=== PATIENT | female | born 1985 | race Caucasian/White ===

== ENCOUNTER 2019-11-07 11:37 | Emergency (ER) | payer BC ==
--- NOTE | 2019-11-07 11:41 | EDM.PDOC ---
ED HPI GENERAL MEDICAL PROBLEM - General Chief Complaint: Lower Extremity Injury/Pain Stated Complaint: POSSIBLE BROKEN R FOOT Time Seen by Provider: 11/07/19 11:39 Source of Information: Reports: Patient History Limitations: Reports: No Limitations - History of Present Illness INITIAL COMMENTS - FREE TEXT/NARRATIVE: HISTORY AND PHYSICAL: History of present illness: Patient is a 33-year-old female who presents to the emergency room with complaints of right lateral foot pain and swelling. She states last evening she rolled her foot and had immediate pain and discomfort. She denies any other extremity and involvement. Offers no systemic complaints. Review of systems: As per history of present illness and below otherwise all systems reviewed and negative. Past medical history: As per history of present illness and as reviewed below otherwise noncontributory. Surgical history: As per history of present illness and as reviewed below otherwise noncontributory. Social history: See social history for further information Family history: As per history of present illness and as reviewed below otherwise noncontributory. Physical exam: General: Well-developed and well-nourished 33-year-old female. Alert and oriented. Nontoxic-appearing and in no acute distress. HEENT: Atraumatic, normocephalic, pupils equal and reactive bilaterally, negative for conjunctival pallor or scleral icterus, mucous membranes moist, TMs normal bilaterally, throat clear, neck supple, nontender, trachea midline. No drooling or trismus noted. No meningeal signs. No hot potato voice noted. Lungs: Clear to auscultation, breath sounds equal bilaterally, chest nontender. Heart: S1S2, regular rate and rhythm without overt murmur Abdomen: Soft, nondistended, nontender. Skin: Soft tissue swelling and bruising to the lateral mid right foot. Otherwise skin is intact, warm, dry. No lesions or rashes noted. Extremities: Pain with palpation of the lateral right midfoot, SEE SKIN for details. No malleolus tenderness with palpation. Moves all extremities per self without difficulty or deficits, strong radial pulse, cap refill less than 3 seconds, +CMS, negative for cords or calf pain. Neurovascular unremarkable. Neuro: Awake, alert, oriented. Cranial nerves II through XII unremarkable. Cerebellum unremarkable. Motor and sensory unremarkable throughout. Exam nonfocal. Notes: X-ray shows a slightly displaced distal shaft fracture within the fifth metatarsal. Soft tissue swelling noted. This information was shared with the patient. A posterior fiberglass splint was placed and crutches education given. Patient will need the splint and crutches until cleared by podiatry. Supportive care measures were reviewed and discussed. Voices understanding and is agreeable to plan of care. Denies any further questions or concerns at this time. Diagnostics: Right foot x-ray Therapeutics: Fiberglass splint, Crutches, [place] Prescription: [place] (#20) Impression: Metatarsal fracture, right foot Plan: 1. Rest, ice, elevate the affected extremity. Please wear the fiberglass splint and use the crutches until cleared by podiatry. NONWIEGHTBEARING. 2. Tylenol and/or Ibuprofen as needed for pain management. [place] as directed, this medication may cause drowsiness so do not take it while driving or needing to be functioning outside of the house. 3. Follow up with the Orthopedic provider or podiatry as we discussed. Return to the ED as needed and as discussed. Definitive disposition and diagnosis as appropriate pending reevaluation and review of above. right foot Pain Score (Numeric/FACES): 8 - Related Data Allergies Allergy/AdvReac Type Severity Reaction Status Date / Time No Known Allergies Allergy Verified 11/07/19 11:46 Home Meds: Home Meds Acetaminophen/HYDROcodone [[place] 325-5 MG] 1 dose PO Q4H #20 tablet 11/07/19 [Rx ] Melatonin 2 tab PO DAILY 11/07/19 [History] Review of Systems - Review of Systems Review Of Systems: Comprehensive ROS is negative, except as noted in HPI. ED EXAM, GENERAL - Physical Exam Exam: See Below (See dictation) Course - Vital Signs Last Recorded V/S: Last Vital Signs Temp 96.7 F L 11/07/19 11:43 Pulse 87 11/07/19 11:43 Resp 16 11/07/19 11:43 BP 129/77 11/07/19 11:43 Pulse Ox 95 11/07/19 11:43 - Orders/Labs/Meds Orders: Active Orders 24 hr Category Date Time Status DME for Discharge [COMM] Stat Oth 11/07/19 12:20 Ordered Meds: Medications Discontinued Medications Generic Name Dose Route Start Last Admin Trade Name Freq PRN Reason Stop Dose Admin Hydrocodone Bitart/Acetaminophen 1 tab 11/07/19 12:19 [place] 325-5 Mg PO 11/07/19 12:20 ONETIME ONE Departure - Departure Time of Disposition: 12:22 Disposition: Home, Self-Care 01 Clinical Impression: Metatarsal bone fracture Qualifiers: Encounter type: initial encounter Metatarsal bone: fifth Fracture type: closed Fracture alignment: displaced Laterality: right Qualified Code(s): S92.351A - Displaced fracture of fifth metatarsal bone, right foot, initial encounter for closed fracture - Discharge Information Prescriptions: Acetaminophen/HYDROcodone [[place] 325-5 MG] 1 dose PO Q4H #20 tablet Instructions: Metatarsal Fracture Referrals: Delio Butler MD [Primary Care Provider] - Forms: ED Department Discharge Additional Instructions: The following information is given to patients seen in the emergency department who are being discharged to home. This information is to outline your options for follow-up care. We provide all patients seen in our emergency department with a follow-up referral. The need for follow-up, as well as the timing and circumstances, are variable depending upon the specifics of your emergency department visit. If you don't have a primary care physician on staff, we will provide you with a referral. We always advise you to contact your personal physician following an emergency department visit to inform them of the circumstance of the visit and for follow-up with them and/or the need for any referrals to a consulting specialist. The emergency department will also refer you to a specialist when appropriate. This referral assures that you have the opportunity for follow-up care with a specialist. All of these measure are taken in an effort to provide you with optimal care, which includes your follow-up. Under all circumstances we always encourage you to contact your private physician who remains a resource for coordinating your care. When calling for follow-up care, please make the office aware that this follow-up is from your recent emergency room visit. If for any reason you are refused follow-up, please contact the [facility] Emergency Department at and asked to speak to the emergency department charge nurse. [facility] [address] [place] [phone] Medina (Podiatry) [facility] [address] [place] [address] 1. Rest, ice, elevate the affected extremity. Please wear the fiberglass splint and use the crutches until cleared by podiatry. NONWIEGHTBEARING. 2. Tylenol and/or Ibuprofen as needed for pain management. [place] as directed, this medication may cause drowsiness so do not take it while driving or needing to be functioning outside of the house. 3. Follow up with the Orthopedic provider or podiatry as we discussed. Return to the ED as needed and as discussed. Sepsis Event Note - Focused Exam Vital Signs: Vital Signs Temp Pulse Resp BP Pulse Ox 11/07/19 11:43 96.7 F L 87 16 129/77 95 Date Exam was Performed: 11/07/19 Time Exam was Performed: 12:25 - My Orders Last 24 Hours: My Active Orders 11/07/19 12:20 DME for Discharge [COMM] Stat - Assessment/Plan Last 24 Hours: My Active Orders 11/07/19 12:20 DME for Discharge [COMM] Stat
--- NOTE | 2019-11-07 12:14 | CR ---
Right foot: 2 views of the right foot were obtained. Comparison: No previous study. Slightly displaced distal shaft fracture is noted within the 5th metatarsal. Unfused os navicularis is noted which is felt to be a normal variant. No additional fracture or other bony abnormality is seen. Soft tissue swelling is noted. Impression: 1. Slightly displaced distal shaft fracture within the 5th metatarsal. 2. Soft tissue swelling. 3. No other acute finding is seen on 2 view right foot exam. Diagnostic code #3 This report was dictated in [place] Standard Time
[2019-11-07] MEDS ORDERED: Acetaminophen/HYDROcodone 325-5 MG Tab PO ONE (12:19)
[2019-11-07] MEDS ORDERED: Ondansetron 4 MG Tab.DIS PO ONE (12:45)
[2019-11-07] MEDS ORDERED: Ondansetron 4 MG Tab.DIS ONE (12:46)
== END 2019-11-07 13:25 | disposition home or self-care (01) ==
LOC: MW.ED 11:37
DX: S92.351A Displaced fracture of fifth metatarsal bone, right foot, initial encounter for closed fracture (principal); X50.9XXA Other and unspecified overexertion or strenuous movements or postures, initial encounter
CPT/HCPCS: 29515; 73620; 99283; A9270

== ENCOUNTER 2020-04-12 10:53 | Emergency (ER) | payer BC ==
--- NOTE | 2020-04-12 11:24 | EDM.PDOC ---
ED HPI GENERAL MEDICAL PROBLEM - General Chief Complaint: Lower Extremity Injury/Pain Stated Complaint: INJURY RT LEG Time Seen by Provider: 04/12/20 11:10 Source of Information: Reports: Patient History Limitations: Reports: No Limitations - History of Present Illness INITIAL COMMENTS - FREE TEXT/NARRATIVE: Presents reporting left cristobal pain. The patient dates that 48 hours ago she was playing with her dog while standing on boulders [place] the [employer]. She slipped, wedging her left lower leg between 2 boulders. Since that time she has had pain independent of weightbearing. She worked all day yesterday at an intensely physical job as usual but had pain in her lower leg. Did see a medical provider yesterday who performed an x-ray, fitted her with a splint, and prescribed a muscle relaxant at bedtime. The patient states the medical provider was not sure about the x-ray interpretation and since she was still having pain today, came here for another x-ray. Left Leg Pain Score (Numeric/FACES): 6 - Related Data Allergies Allergy/AdvReac Type Severity Reaction Status Date / Time No Known Allergies Allergy Verified 04/12/20 11:16 Home Meds: Home Meds Melatonin 2 tab PO DAILY 11/07/19 [History] Cyclobenzaprine [Flexeril] 10 mg PO BEDTIME 04/12/20 [History] Phentermine HCl [Adipex-P] 37.5 mg PO DAILY 04/12/20 [History] Spironolactone 50 mg PO DAILY 04/12/20 [History] Past Medical History - Past Health History Medical/Surgical History: Denies Medical/Surgical History Social & Family History - Family History Family Medical History: Noncontributory Review of Systems - Review of Systems Review Of Systems: Comprehensive ROS is negative, except as noted in HPI. ED EXAM, GENERAL - Physical Exam Exam: See Below Exam Limited By: No Limitations General Appearance: Alert, No Apparent Distress Ears: Normal External Exam Nose: Normal Inspection Throat/Mouth: Normal Inspection Head: Atraumatic, Normocephalic Neck: Normal Inspection Respiratory/Chest: No Respiratory Distress, Lungs Clear, Normal Breath Sounds Cardiovascular: Normal Peripheral Pulses, Regular Rate, Rhythm, No Edema Extremities: Normal Range of Motion, Other (Left cristobal with 10 x 7 cm lightly ecchymotic and tender area. Very superficial abrasion that is dry and scabbed. Calf soft. CMS intact to all toes. Pedal and posttibial pulses strong. No swelling.) Neurological: Alert, Oriented Psychiatric: Normal Affect, Normal Mood Skin Exam: Warm, Dry, Intact, Normal Color, No Rash Lymphatic: No Adenopathy Course - Vital Signs Last Recorded V/S: Last Vital Signs Temp 35.7 C L 04/12/20 11:10 Pulse 73 04/12/20 12:10 Resp 16 04/12/20 12:10 BP 113/82 04/12/20 11:10 Pulse Ox 96 04/12/20 12:10 Departure - Departure Time of Disposition: 12:23 Disposition: Home, Self-Care 01 Condition: Good Clinical Impression: Contusion Qualifiers: Encounter type: subsequent encounter - Discharge Information *PRESCRIPTION DRUG MONITORING PROGRAM REVIEWED*: Not Applicable *COPY OF PRESCRIPTION DRUG MONITORING REPORT IN PATIENT SALTY: Not Applicable Referrals: Tata Benoit DO [Primary Care Provider] - Forms: ED Department Discharge Additional Instructions: The following information is given to patients seen in the emergency department who are being discharged to home. This information is to outline your options for follow-up care. We provide all patients seen in our emergency department with a follow-up referral. The need for follow-up, as well as the timing and circumstances, are variable depending upon the specifics of your emergency department visit. If you don't have a primary care physician on staff, we will provide you with a referral. We always advise you to contact your personal physician following an emergency department visit to inform them of the circumstance of the visit and for follow-up with them and/or the need for any referrals to a consulting s pecialist. The emergency department will also refer you to a specialist when appropriate. This referral assures that you have the opportunity for follow-up care with a specialist. All of these measure are taken in an effort to provide you with optimal care, which includes your follow-up. Under all circumstances we always encourage you to contact your private physician who remains a resource for coordinating your care. When calling for follow-up care, please make the office aware that this follow-up is from your recent emergency room visit. If for any reason you are refused follow-up, please contact the [facility] Emergency Department at and asked to speak to the emergency department charge nurse. 1. Wear Shahram wrap. 2. Ibuprofen 2-3 tabs 3 times daily or Aleve 2 tabs a.m. and p.m. as needed for pain 3. Cool pack 20 minutes every 3-4 hours as needed for pain 4. Follow up in primary care. Sepsis Event Note (ED) - Evaluation Sepsis Screening Result: No Definite Risk - Focused Exam Vital Signs: Vital Signs Temp Pulse Resp BP Pulse Ox 04/12/20 12:10 73 16 96 04/12/20 11:10 35.7 C L 90 16 113/82 96
--- NOTE | 2020-04-12 12:13 | CR ---
Left tibia and fibula: AP and lateral views of the left tibia and fibula were obtained. Comparison: No previous left tibia or fibula study is available. No discrete fracture or other bony abnormality is appreciated. Impression: 1. No abnormality is identified on 2 view left tibia and fibula exam. Diagnostic code #1 This report was dictated in MDT
[2020-04-12] MEDS ORDERED: Diphtheria,Pertussis(Acell),Tetanus Vaccine 0.5 ML Syringe IM ONE (12:27)
== END 2020-04-12 12:34 | disposition home or self-care (01) ==
LOC: MW.ED 10:53
DX: S80.12XA Contusion of left lower leg, initial encounter (principal); Z79.899 Other long term (current) drug therapy; W01.0XXA Fall on same level from slipping, tripping and stumbling without subsequent striking against object, initial encounter
CPT/HCPCS: 73590-26-LT; 73590-LT; 99283-25

== ENCOUNTER 2022-01-14 11:01 | Emergency (ER) | payer BC | END 2022-01-14 13:18 | disposition left against medical advice (07) | LOC: MW.ED 11:01 | DX: Z53.21 Procedure and treatment not carried out due to patient leaving prior to being seen by health care provider (principal) ==

== ENCOUNTER 2022-02-16 09:29 | Day surgery (SDC) | payer BC ==
[~2022-02-16 09:29] MED LIST: Lactated Ringers 1,000 ML IV SCH
[2022-02-16] MEDS ORDERED: Lidocaine 2% 5 ML SDV ONE (10:09)
[2022-02-16] MEDS ORDERED: fentaNYL 100 MCG/2 ML SDV ONE (10:09)
[2022-02-16] MEDS ORDERED: Propofol 200 MG/20 ML SDV ONE ×3 (10:09→11:34)
== END 2022-02-16 12:20 | disposition home or self-care (01) ==
LOC: MW.SDS 09:29
PROVIDERS: ATTEND Surgery
DX: K62.1 Rectal polyp (principal); K57.30 Diverticulosis of large intestine without perforation or abscess without bleeding; E66.9 Obesity, unspecified; F17.210 Nicotine dependence, cigarettes, uncomplicated; Z68.37 Body mass index [BMI] 37.0-37.9, adult; Z80.0 Family history of malignant neoplasm of digestive organs
CPT/HCPCS: 45380; 81025; J2704; J3010; J7120; 00811